=== PATIENT | female | born 1980 | race Caucasian/White ===

== ENCOUNTER 2016-03-29 12:55 | Emergency (ER) | payer OTHER ==
[2016-03-29 13:19] VITALS: BP 98/57; PULSE 84; TEMP 98; BMI 19.5
[2016-03-29] MEDS ORDERED: IBUPROFEN 400 MG TABLET (FP) PO ONE ×2 (15:09→15:28)
[2016-03-29] MEDS ORDERED: OXYCODONE/APAP 5/325MG COMBO TABLET PO ONE (15:09)
[2016-03-29] MEDS ORDERED: AMOX TR/POT CLAV 875MG/125MG TABLETS (FP) PO ONE (15:10)
--- NOTE | 2016-03-29 15:17 | PDOC ---
[id number] Severity: moderate Associated Symptoms: denies: cough, fever/chills <Brooklyn Alatorre - Last Filed: 03/29/16 15:24> <Berna Holland - Last Filed: 03/29/16 22:32> - General Chief Complaint: Edema Stated Complaint: SWELLING RT SIDE OF FACE Time Seen by Provider: 03/29/16 14:14 Past History - Psycho/Social/Smoking Cessation Hx Suicidal Ideation: No Smoking History: Current every day smoker Number of Cigarettes Smoked Daily: 5 Information on smoking cessation initiated: No <Brooklyn Alatorre - Last Filed: 03/29/16 15:24> <Berna Holland - Last Filed: 03/29/16 22:32> - Past Medical History Allergies/Adverse Reactions: Allergies Allergy/AdvReac Type Severity Reaction Status Date / Time No Known Allergies Allergy Verified 03/29/16 13:19 Home Medications: Ambulatory Orders Amoxicillin/Potassium Clav [Augmentin 875-125 Tablet] 1 each PO BID #14 tablet 03/29/16 Ibuprofen [Motrin -] 800 mg PO Q6H #30 tablet 03/29/16 Oxycodone HCl/Acetaminophen [Percocet 5-325 mg Tablet] 1 tab PO Q4H #12 tablet MDD 4 03/29/16 Review of Systems - Review of Systems Constitutional: No: Chills, Fever HEENTM: No: Ear Pain, Nose Pain, Nose Congestion, Throat Pain Respiratory: No: Cough <Brooklyn Alatorre - Last Filed: 03/29/16 15:24> *Physical Exam - Vital Signs Last Vital Signs Temp Pulse Resp BP Pulse Ox 98 F 84 18 98/57 100 03/29/16 13:16 03/29/16 13:16 03/29/16 13:16 03/29/16 13:16 03/29/16 13:16 - Physical Exam General Appearance: Yes: Appropriately Dressed. No: Apparent Distress HEENT: positive: Normal Voice, Other (~2cm induration over R nasolabial fold w/ ? fluctuance, +swelling/fullness to gumline of R upper molar, concerning for dental abscess) Neck: positive: Supple. negative: Lymphadenopathy (R), Lymphadenopathy (L) Respiratory/Chest: negative: Respiratory Distress Integumentary: positive: Dry, Warm Neurologic: positive: Fully Oriented, Alert, Normal Mood/Affect <Brooklyn Alatorre - Last Filed: 03/29/16 15:24> - Vital Signs Last Vital Signs Temp Pulse Resp BP Pulse Ox 98 F 84 18 98/57 100 03/29/16 13:16 03/29/16 13:16 03/29/16 13:16 03/29/16 13:16 03/29/16 13:16 <Berna Holland - Last Filed: 03/29/16 22:32> Procedures - Incision and Drainage I&D Site: Right: Other (dental abscess-incision made to gumline of R upper 1st molar w/ sig purulent drainage, suction used during procedure) Betadine cleansed: No Anesthesia: 1% Lidocaine Blade Size: 11 Attempts: 1 <Brooklyn Alatorre - Last Filed: 03/29/16 15:24> - Incision and Drainage I&D Site: Right: Other (dental abscess) Anesthesia: 1% Lidocaine Volume(ml): 1 Blade Size: 11 Attempts: 2 Complications: none Progress: PAtient was injected with lidocaine locally at the area of maximum fluctuance, over the R upper premolars. Once anesthesia was achieved, area was incised, initially with no return of pus. Incision was made slightly deeper, at which time small amt of pus was expressed. <Berna Holland - Last Filed: 03/29/16 22:32> ED Treatment Course - ADDITIONAL ORDERS Additional order review: Laboratory Results 03/29/16 15:27 ALT 26 - Medications Given in the ED: ED Medications Discontinued Medications Generic Name Dose Route Start Last Admin Trade Name Kiran PRN Reason Stop Dose Admin Amoxicillin/Clavulanate Potassium 1 tab 03/29/16 15:10 03/29/16 15:34 Augmentin - 875mg Tablet PO 03/29/16 15:11 1 tab ONCE ONE Administration Ibuprofen 800 mg 03/29/16 15:09 03/29/16 15:33 Motrin - PO 03/29/16 15:10 800 mg ONCE ONE Administration Oxycodone/Acetaminophen 1 combo 03/29/16 15:09 03/29/16 15:34 Percocet 5/325 - PO 03/29/16 15:10 1 combo ONCE ONE Administration <Berna Holland Last Filed: 03/29/16 22:32> Medical Decision Making - Medical Decision Making 03/29/16 15:11 35-year-old female, denies any past medical history, here with R facial swelling x several days. Denies any trauma, dental pain, URI symptoms, fever or chills. Patient well-appearing and stable in ED w/ approximately 2 cm area of induration palpated over right nasolabial area with ? fluctuance, w/ corresponding swelling to gumline of R upper 1st molar w/ large dental arun. Findings concerning for dental abscess. I and D was performed by myself and Dr. Holland with significant purulent drainage and improvement in facial swelling. Patient was started on Augmentin and given follow-up at dental care center in [place] 03/29/16 15:23 Of note, BP low in ED. Pt states BP usually runs low. No dizziness or weakness 03/29/16 15:23 ED attg accidentally got stuck with blade during I&D. Pt denies any pmhx and verbally consenting to exposure labs 03/29/16 15:24 <Brooklyn Alatorre - Last Filed: 03/29/16 15:24> *DC/Admit/Observation/Transfer <Brooklyn Alatorre - Last Filed: 03/29/16 15:24> - Attestations Physician Attestion: I reviewed the case with the mid-level practitioner and agree with the mid- level practitioner's assessment, diagnosis and disposition. <Berna Holland - Last Filed: 03/29/16 22:32> Diagnosis at time of Disposition: Dental abscess - Discharge Dispostion Disposition: HOME Condition at time of disposition: Improved - Prescriptions Prescriptions: Amoxicillin/Potassium Clav [Augmentin 875-125 Tablet] 1 each PO BID #14 tablet Ibuprofen [Motrin -] 800 mg PO Q6H #30 tablet Oxycodone HCl/Acetaminophen [Percocet 5-325 mg Tablet] 1 tab PO Q4H #12 tablet MDD 4 - Patient Instructions Printed Discharge Instructions: Tooth Abscess Additional Instructions: Take medications as directed and follow up in dental clinic today: [facility] [address] [place] [address]
[2016-03-29] MEDS ORDERED: AMOX TR/POT CLAV 875MG/125MG TABLETS (FP) ONE (15:29)
[2016-03-29] MEDS ORDERED: OXYCODONE/APAP 5/325MG COMBO TABLET ONE (15:29)
[2016-03-29 17:18] LABS: HIV 1 & 2 AB NEGATIVE; HIV 1 AGp24 NEGATIVE
[2016-04-01 00:06] LABS: HEP B SURFACE AB Reactive (.)
== END 2016-03-29 15:34 | disposition home or self-care (01) ==
LOC: JERFT 12:55
PROC: 0C95XZZ Drainage of Upper Gingiva, External Approach (ICD-10-PCS; principal; 2016-03-29)
DX: K04.7 Periapical abscess without sinus (principal)
CPT/HCPCS: 36415; 41800; 84460; 86704; 86706; 86708; 86803; 87340; 87389; 99281-25

== ENCOUNTER 2016-05-21 20:08 | Emergency (ER) | payer OTHER ==
[2016-05-21 20:27] VITALS: BP 127/86; PULSE 106; TEMP 97.3; BMI 18.8
[2016-05-21] MEDS ORDERED: ONDANSETRON 4 MG/2 ML VIAL IVPB ONE (22:01)
[2016-05-21] MEDS ORDERED: SODIUM CHLORIDE 1,000 ML IV STA (22:02)
[2016-05-21] MEDS ORDERED: AMOX TR/POT CLAV 875MG/125MG TABLETS (FP) PO ONE (22:02)
[2016-05-21] MEDS ORDERED: ONDANSETRON 4 MG/2 ML VIAL ONE (22:02)
[2016-05-21] MEDS ORDERED: ALBUTEROL SO4 0.083% IH SOL 2.5 MG/3 ML VIAL.NEB. NEB ONE (22:46)
[2016-05-21] MEDS ORDERED: AMOX TR/POT CLAV 875MG/125MG TABLETS (FP) ONE (22:46)
[2016-05-21] MEDS ORDERED: ALBUTEROL SO4 2.5/IPRATROPIUM 0.5 INH SOL 3 ML VIAL.NEB. NEB ONE (22:46)
--- NOTE | 2016-05-21 22:47 | PDOC ---
History of Present Illness - General Chief Complaint: Cold Symptoms Stated Complaint: COLD SYMPTOMS Time Seen by Provider: 05/21/16 20:39 History Source: Patient Exam Limitations: No Limitations - History of Present Illness Initial Comments: 05/21/16 22:44 CC sore throat, bad cough x 1 week Timing/Duration: reports: week Severity: reports: moderate Associated Symptoms: reports: nasal congestion, nasal drainage, sore throat, wheezing. denies: earache, fever/chills Past History - Past Medical History Allergies/Adverse Reactions: Allergies Allergy/AdvReac Type Severity Reaction Status Date / Time No Known Allergies Allergy Verified 05/21/16 20:27 Home Medications: Ambulatory Orders Albuterol Sulfate Inhaler - [Ventolin HFA Inhaler -] 2 inh PO Q4H #1 inh Amox-Tr/K Cl [Augmentin - 875Mg Tablet] 1 tab PO BID #20 tablet 05/21/16 Ondansetron [Zofran -] 4 mg PO BID #7 tablet 05/21/16 Other medical history: denies - Psycho/Social/Smoking Cessation Hx Suicidal Ideation: No Smoking History: Current every day smoker Number of Cigarettes Smoked Daily: 10 Information on smoking cessation initiated: No Hx Alcohol Use: No Drug/Substance Use Hx: No Substance Use Type: None *Physical Exam - Vital Signs Last Vital Signs Temp Pulse Resp BP Pulse Ox 97.3 F L 106 H 19 127/86 97 05/21/16 20:24 05/21/16 20:24 05/21/16 20:24 05/21/16 20:24 05/21/16 20:24 ED Treatment Course - Medications Given in the ED: ED Medications Discontinued Medications Generic Name Dose Route Start Last Admin Trade Name Aamirq PRN Reason Stop Dose Admin Ondansetron HCl 4 mg 05/21/16 22:01 05/21/16 22:09 Zofran Injection IVPB 05/21/16 22:02 4 mg ONCE ONE Administration Medical Decision Making - Medical Decision Making 05/21/16 22:55 feeling better post zofran, 1 liter of NS and combivent; will start augmentin due to smoker with new wheezing and sinus infection *DC/Admit/Observation/Transfer Diagnosis at time of Disposition: Bronchitis Acute sinus infection Qualifiers: Sinusitis location: unspecified location Recurrence: non-recurrent Qualified Code(s): J01.90 - Acute sinusitis, unspecified - Discharge Dispostion Disposition: HOME Condition at time of disposition: Stable Admit: No - Prescriptions Prescriptions: Amox-Tr/K Cl [Augmentin - 875Mg Tablet] 1 tab PO BID #20 tablet Albuterol Sulfate Inhaler - [Ventolin HFA Inhaler -] 2 inh PO Q4H #1 inh Ondansetron [Zofran -] 4 mg PO BID #7 tablet - Patient Instructions Additional Instructions: please see local MD in 5 days if no better; rest at home; lots of fluids - Post Discharge Activity Work/School Note: Back to Work
== END 2016-05-21 23:04 | disposition home or self-care (01) ==
LOC: JERFT 20:08
PROC: 3E0F7GC Introduction of Other Therapeutic Substance into Respiratory Tract, Via Natural or Artificial Opening (ICD-10-PCS; principal; 2016-05-21)
PROC: 3E0337Z Introduction of Electrolytic and Water Balance Substance into Peripheral Vein, Percutaneous Approach (ICD-10-PCS; 2016-05-21)
PROC: 3E033GC Introduction of Other Therapeutic Substance into Peripheral Vein, Percutaneous Approach (ICD-10-PCS; 2016-05-21)
DX: J20.9 Acute bronchitis, unspecified (principal); J01.90 Acute sinusitis, unspecified
CPT/HCPCS: 94640; 96361; 96374; 99281-25

== ENCOUNTER 2016-07-17 11:52 | Emergency (ER) | payer OTHER ==
[2016-07-17 11:58] VITALS: BP 124/57; PULSE 88; TEMP 98.2; BMI 18.8
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
== END 2016-07-17 13:33 | disposition home or self-care (01) ==
LOC: JERFT 11:52
DX: Z32.01 Encounter for pregnancy test, result positive (principal); K05.10 Chronic gingivitis, plaque induced
CPT/HCPCS: 84703; 99281-25

== ENCOUNTER 2016-08-04 18:26 | Emergency (ER) | payer OTHER ==
[2016-08-04 18:30] VITALS: BP 125/78; PULSE 99; TEMP 98.6; BMI 19.7
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
[2016-08-04 22:15] LABS: BASOPHIL 0.6 % (0-2.0); EOSINOPHIL 1.4 % (0-4.5); MCH 31.1 pg (25.7-33.7); MCHC 33.9 g/dl (32.0-36.0); MEAN CELL VOLUME 91.7 fl (80-96); MEAN PLT VOLUME 7.3 fl (7.5-11.1); NEUTROPHILS 69.9 % (42.8-82.8); PLATELET COUNT 228 K/MM3 (134-434); WHITE BLOOD COUNT 9.7 K/mm3 (4.0-10.0)
[2016-08-04 22:17] LABS: URINE APPEARANCE CLEAR; URINE BILIRUBIN NEGATIVE (NEGATIVE); URINE COLOR STRAW; URINE GLUCOSE (UA) NEGATIVE (NEGATIVE); URINE KETONE NEGATIVE (NEGATIVE); URINE LEUK ESTERASE NEGATIVE (NEGATIVE); URINE NITRITE NEGATIVE (NEGATIVE); URINE PROTEIN NEGATIVE (NEGATIVE); URINE UROBILINOGEN NEGATIVE E.U./dl (0.2-1.0)
[2016-08-04 22:19] LABS: URINE BLOOD 1+ (NEGATIVE)
[2016-08-04 22:20] LABS: URINE BACTERIA RARE /hpf (NONE SEEN); URINE MUCUS RARE; URINE RBC 1 /hpf (0-3); URINE WBC 3 /hpf (3-5)
== END 2016-08-04 23:31 | disposition home or self-care (01) ==
LOC: JER 18:26
DX: O99.89 Other specified diseases and conditions complicating pregnancy, childbirth and the puerperium (principal); R10.84 Generalized abdominal pain; V43.52XA Car driver injured in collision with other type car in traffic accident, initial encounter; Y92.488 Other paved roadways as the place of occurrence of the external cause; Y93.89 Activity, other specified; Y99.8 Other external cause status
CPT/HCPCS: 36415; 81003; 81015; 85025; 86850; 86900; 86901; 87086; 99284-25

== ENCOUNTER 2016-11-29 13:29 | Emergency (ER) | payer OTHER ==
[2016-11-29 13:43] VITALS: BMI 24.2
[2016-11-29] MEDS ORDERED: ELECTROLYTE-148 SOLN 1,000 ML IV ONE (14:30)
[2016-11-29 15:45] LABS: URINE APPEARANCE CLOUDY; URINE BILIRUBIN NEGATIVE (NEGATIVE); URINE BLOOD NEGATIVE (NEGATIVE); URINE COLOR YELLOW; URINE GLUCOSE (UA) NEGATIVE (NEGATIVE); URINE KETONE NEGATIVE (NEGATIVE); URINE NITRITE NEGATIVE (NEGATIVE); URINE PROTEIN NEGATIVE (NEGATIVE); URINE UROBILINOGEN NEGATIVE mg/dL (0.2-1.0)
[2016-11-29 17:03] LABS: BASOPHIL 0.1 % (0-2.0); EOSINOPHIL 0.7 % (0-4.5); MCH 31.7 pg (25.7-33.7); MCHC 33.7 g/dl (32.0-36.0); MEAN PLT VOLUME 8.5 fl (7.5-11.1); NEUTROPHILS 86.2 % (42.8-82.8); PLATELET COUNT 187 K/MM3 (134-434); RDW 13.6 % (11.6-15.6); WHITE BLOOD COUNT 11.3 K/mm3 (4.0-10.0)
[2016-11-29 17:33] LABS: ALBUMIN 2.4 g/dl (3.4-5.0); ANION GAP 10 (8-16); CALCIUM 8.2 mg/dL (8.5-10.1); CO2 22 mmol/L (21-32); GLUCOSE,RANDOM 83 mg/dL (74-106)
[2016-11-29 18:10] VITALS: BP 130/69; PULSE 100; TEMP 98.2
[2016-11-29 18:32] LABS: BILIRUBIN,TOTAL 0.3 mg/dL (0.2-1.0); TOT PROT 5.4 g/dl (6.4-8.2)
[2016-11-29 18:33] LABS: ALK PHOS 102 U/L (45-117); SGOT/AST 10 U/L (15-37); SGPT/ALT 17 U/L (12-78)
[2016-11-29 23:27] LABS: CREATININE 0.4 mg/dL (0.55-1.02)
== END 2016-11-29 18:06 | disposition home or self-care (01) ==
LOC: JER 13:29
DX: O26.893 Other specified pregnancy related conditions, third trimester (principal); R10.30 Lower abdominal pain, unspecified; Z3A.33 33 weeks gestation of pregnancy
CPT/HCPCS: 36415; 80053; 81003; 85025; 99282-25

== ENCOUNTER 2017-01-16 07:35 | Inpatient (IN) | payer OTHER ==
[2017-01-16] MEDS ORDERED: CITRIC ACID/SODIUM CITRATE 30 ML UNIT-DOSE CUP PO ONE (09:14)
[2017-01-16] MEDS ORDERED: ELECTROLYTE-148 SOLN 500 ML IV ONE (09:14)
[2017-01-16] MEDS ORDERED: DEXTROSE 5%-LACTATED RINGERS 1,000 ML IV SCH (09:15)
[2017-01-16] MEDS ORDERED: METHYLERGONOVINE MALEATE 0.2 MG/1 ML AMP IM PRN (09:16)
[2017-01-16] MEDS ORDERED: BENZOCAINE 20% 57 GM BOTTLE TP PRN (09:16)
--- NOTE | 2017-01-16 09:24 | HP ---
Past Medical History - Primary Care Physician PCP:: Alexia Pate - Admission Chief Complaint: spontaneous labor History of Present Illness: 36 yo History Source: Patient - Past Medical History ...: 1 ...Para: 0 ...EDC by [facility]: 01/14/17 - Past Surgical History Past Surgical History: Yes: None Hx Myomectomy: No Hx Transabdominal Cerclage: No Additional Surgical History: RIght ankle surgery - Smoking History Smoking history: Never smoked Aproximately how many cigarettes per day: 10 - Alcohol/Substance Use Hx Alcohol Use: No History of Substance Use: reports: None - Social History Usual Living Arrangement: Yes: With Spouse History of Recent Travel: No Home Medications - Allergies Allergies/Adverse Reactions: Allergies Allergy/AdvReac Type Severity Reaction Status Date / Time No Known Allergies Allergy Verified 01/16/17 08:19 - Home Medications Home Medications: Ambulatory Orders Vit/Iron Fumarate/FA [ Tablet] 1 each PO DAILY 08/04/16 Ferrous Gluconate [Iron] 256 mg PO TID 01/16/17 Review of Systems - Review of Systems Constitutional: reports: No Symptoms Eyes: reports: No Symptoms HENT: reports: No Symptoms Neck: reports: No Symptoms Cardiovascular: reports: No Symptoms Respiratory: reports: No Symptoms Gastrointestinal: reports: No Symptoms Genitourinary: reports: Pain Breasts: reports: No Symptoms Reported Musculoskeletal: reports: No Symptoms Integumentary: reports: No Symptoms Neurological: reports: No Symptoms Endocrine: reports: No Symptoms Hematology/Lymphatic: reports: No Symptoms Psychiatric: reports: No Symptoms Physical Exam - Maternity Constitutional: Yes: Well Nourished, No Distress - Abdominal Exam/OB Number of Fetuses: Single Presentation: Vertex Contractions: Yes Regularity: Regular Monitor Mode: External Category: II Decelerations: Early - Vaginal Exam/OB Amniotic Membrane Status: Intact Presentation: Vertex/Position - Physical Exam Musculoskeletal: Yes: WNL Extremities: Yes: WNL Edema: No Psychiatric: Yes: WNL, Alert, Oriented Problem List - Problems (1) Delivery by elective section Code(s): O82 - ENCOUNTER FOR DELIVERY WITHOUT INDICATION Assessment/Plan Cat 2 refusal of trial of labor SGA iup at 40.2 weeks Plan Primary Section huizar notify peds and neonatalogy
[2017-01-16] MEDS ORDERED: OXYTOCIN 20 UNITS in 0.9% NS 1,000 ML IV SCH (09:30)
[2017-01-16 09:37] VITALS: BMI 25.7
[2017-01-16 09:43] LABS: BASOPHIL 0.3 % (0-2.0); MCH 30.9 pg (25.7-33.7); MCHC 33.8 g/dl (32.0-36.0); MEAN CELL VOLUME 91.4 fl (80-96); MEAN PLT VOLUME 8.3 fl (7.5-11.1); NEUTROPHILS 91.7 % (42.8-82.8); PLATELET COUNT 229 K/MM3 (134-434); RDW 14.1 % (11.6-15.6); WHITE BLOOD COUNT 14.2 K/mm3 (4.0-10.0)
[2017-01-16] MEDS ORDERED: morphine SULFATE/Preservative Free 0.5 MG/ML (1cc Syringe) EP ONE (09:48)
[2017-01-16] MEDS ORDERED: ONDANSETRON 4 MG/2 ML VIAL IVPUSH PRN (09:48)
[2017-01-16] MEDS ORDERED: IBUPROFEN 800 MG/8 ML IJ IVPB PRN (09:49)
[2017-01-16 09:54] LABS: INR 0.95 (0.82-1.09); PROTHROMBIN TIME (PATIENT) 10.7 SEC (9.98-11.88)
[2017-01-16 09:55] LABS: URINE MARIJUANA THC NEGATIVE ng/ml (CUTOFF=50)
[2017-01-16 09:57] LABS: ACTIVATED PTT 25.5 SECONDS (26.9-34.4)
[2017-01-16 10:01] LABS: ANION GAP 13 (8-16); CALCIUM 8.6 mg/dL (8.5-10.1); CO2 19 mmol/L (21-32); CREATININE 0.7 mg/dL (0.55-1.02); GLUCOSE,RANDOM 88 mg/dL (74-106)
[2017-01-16 10:39] LABS: HIV 1 & 2 AB NEGATIVE; HIV 1 AGp24 NEGATIVE
--- NOTE | 2017-01-16 11:18 | OP ---
Operative Note - Note: Operative Date: 01/16/17 Pre-Operative Diagnosis: Nonreassuring. SGA. iuo at 40.2 week Operation: Primary Section Findings: Live female Post-Operative Diagnosis: Same as Pre-op Surgeon: Alexia Pate Plasma Specialist: Lawrence Hernandez Anesthesia: Spinal Estimated Blood Loss (mls): 600 Operative Report Dictated: Yes
[2017-01-16 11:23] LABS: ARTERIAL BLD GAS O2 SATURATION 9.7 % (90-98.9); ARTERIAL BLOOD GAS pH 7.32 (7.35-7.45)
[2017-01-16 11:24] LABS: ARTERIAL BLOOD GAS PO2 11.1 mmHg (80-100)
[2017-01-16 11:27] LABS: VENOUS BLOOD GAS HCO3 22.3 meq/L (19-25); VENOUS PH 7.41 (7.32-7.42)
--- NOTE | 2017-01-16 11:57 | OP ---
DATE OF OPERATION: 01/16/2017 PREOPERATIVE DIAGNOSES: Non-reassuring tracing, small for gestational age, intrauterine at 40-2/7 weeks. SURGERY: Primary section. POSTOPERATIVE DIAGNOSES: Non-reassuring tracing, small for gestational age, intrauterine at 40-2/7 weeks, live female infant. SURGEON: Alexia Pate MD PIPE BOWLS PAINT TRIMMER: BERTA Gaitan. unavailable. ANESTHESIA: Spinal. ANESTHESIOLOGIST: Armand Matos MD PROCEDURE: The patient was taken to the operating room, placed in supine position, prepped and draped in the usual sterile fashion. Timeout was performed in accordance with hospital regulation. A Pfannenstiel skin incision was made with a scalpel. Cautery was then used to go through layers of abdominal wall to level of fascia. Fascia was cut in the midline and cautery was then used to open the fascia in smiling fashion. Kochers then used to bluntly and sharply dissect the rectus muscle with the fascia. Muscles split in midline. Peritoneal cavity was then entered, and carried up and down, with bladder retractor then placed. Vesicouterine reflection was then entered. Bladder was bluntly dissected out of the operative field. Scalpel was then used to make a low transverse uterine incision. The incision was carried up with the use of bandage scissors. A live female was delivered in OT position. Nose and mouth suction performed. Shoulders were delivered without difficulty. Cord was clamped and cut, cord blood obtained. Placenta was manually extracted from the uterus. Uterus was exteriorized and cleaned with clean lap pads. Uterine incision was then closed using 0 Biosyn suture, 1st layer in continuous interlocking, 2nd layer imbricating the 1st layer. Hemostasis was achieved. Uterus interiorized. Abdominal cavity cleaned with clean lap pads. Tubes and ovaries were noted to be normal. Peritoneum closed using 0 Biosyn suture. Fascia was then closed using 0 Vicryl suture in 2 parts. Skin was then closed using 3-0 Vicryl in subcuticular fashion. Wound was washed and dressed. Patient had tolerated procedure well, was taken to recovery room in stable condition. EBL 600 cc ALEXIA PATE M.D. [id number] [facility]
[2017-01-16] MEDS ORDERED: TUBERCULIN PPD 5 TU/0.1ML SYRINGE (IN PATIENT USE ONLY) ID ONE (13:00)
[2017-01-16] MEDS ORDERED: ONDANSETRON 4 MG/2 ML VIAL ONE (20:33)
[2017-01-17] MEDS: IBUPROFEN 800 MG/8 ML IJ IVPB PRN ×2 (04:03→11:50)
[2017-01-17 07:02] LABS: BASOPHIL 0.6 % (0-2.0); EOSINOPHIL 0.3 % (0-4.5); MCH 31.7 pg (25.7-33.7); MCHC 34.2 g/dl (32.0-36.0); MEAN CELL VOLUME 92.7 fl (80-96); MEAN PLT VOLUME 8.4 fl (7.5-11.1); NEUTROPHILS 81.7 % (42.8-82.8); PLATELET COUNT 206 K/MM3 (134-434); RDW 14.2 % (11.6-15.6); WHITE BLOOD COUNT 13.5 K/mm3 (4.0-10.0)
[2017-01-17] MEDS ORDERED: BISACODYL 10 MG SUPP.RECT RC PRN (09:16)
[2017-01-17] MEDS: PRENATAL VITAMINS W/ FOLIC ACID TABLET (FP) PO SCH (09:32)
--- NOTE | 2017-01-17 12:39 | PN ---
Progress Note (short form) - Note Progress Note: ANESTHESIOLOGIST 36F s/p with spinal anesthesia POD #1. Called to assess patient for headache. Pt c/o unilateral right supraorbital and temporal headache. Denies tinnitus, diplopia, photophobia, N/V, positional changes. Pain was 10/10 now 5/ 10 severity after Ibuprofen IV. Pt has history of migraines but states reynoso snot feel like typical migraine. Vital Signs Temperature 97.7 F 01/17/17 06:34 Pulse Rate 88 01/17/17 06:34 Respiratory Rate 20 01/17/17 11:00 Blood Pressure 110/60 01/17/17 06:34 O2 Sat by Pulse Oximetry (%) 98 01/16/17 12:30 Active Medications Benzocaine (Americaine 20% [place] -) 1 spray TP PRN PRN PRN Reason: PAIN Bisacodyl (Dulcolax Suppository -) 10 mg RC PRN PRN PRN Reason: CONSTIPATION Diphenhydramine HCl (Benadryl Injection -) 25 mg IVPUSH Q4H PRN PRN Reason: Pruritis Diphtheria/Tetanus/Acell Pertussis (Boostrix -) 0.5 ml IM .ONCE ONE Stop: 01/17/17 14:01 Dextrose/Lactated Ringer's (D5-Lr -) 1,000 mls @ 125 mls/hr IV ASDIR PATRIC Oxytocin/Sodium Chloride (Normal Saline+20 Units Oxytocin -) 1,000 mls @ 125 mls/hr IV ASDIR PATRIC Last Admin: 01/16/17 11:30 Dose: 125 mls/hr Ibuprofen (Motrin -) 600 mg PO Q4H PRN PRN Reason: PAIN Ibuprofen (Caldolor Injection -) 800 mg IVPB Q8H PRN PRN Reason: PAIN OR FEVER Last Admin: 01/17/17 11:50 Dose: 800 mg Ibuprofen (Caldolor Injection -) 600 mg IVPB Q8H PRN PRN Reason: FEVER Methylergonovine Maleate (Methergine Injection -) 0.2 mg IM Q4H PRN PRN Reason: Excessive Bleeding (L&D) Multivit/Folic Acid/Iron ( Vitamins (Sjr) -) 1 tab PO DAILY [facility] Last Admin: 01/17/17 09:32 Dose: Not Given Simethicone (Mylicon -) 80 mg PO Q4H PRN PRN Reason: GAS Gen: Awake, alert, NAD Headache persists without change in severity when changed from sitting to supine position. 36F s/p with uncomplicated spinal anesthesia with 25G needle now with headache. Non-positional, improved with NSAID. Unlikely post-dural puncture headache. No epidural blood patch needed at this time. May continue Ibuprofen, tylenol and/or any medication patient takes at home. Continue management as per primary team.
[2017-01-17] MEDS: oxyCODONE HCL 5 MG TABLET PO PRN ×2 (13:31→18:35)
[2017-01-17] MEDS ORDERED: DIPHTH,PERTUSS(ACELL),TET 0.5 ML DISP.SYRIN IM ONE (14:00)
[2017-01-17] MEDS: IBUPROFEN 600 MG TABLET (FP) PO PRN (18:34)
[2017-01-17] MEDS: SIMETHICONE 80 MG TAB.CHEW (FP) PO PRN (18:34)
[2017-01-18] MEDS: SIMETHICONE 80 MG TAB.CHEW (FP) PO PRN ×5 (00:04→21:08)
[2017-01-18] MEDS: IBUPROFEN 600 MG TABLET (FP) PO PRN ×5 (00:05→21:08)
[2017-01-18] MEDS: oxyCODONE HCL 5 MG TABLET PO PRN ×5 (00:05→21:09)
[2017-01-18] MEDS: PRENATAL VITAMINS W/ FOLIC ACID TABLET (FP) PO SCH (09:26)
--- NOTE | 2017-01-18 09:43 | PN ---
Post Progress Note - Subjective Subjective: 36 yo Para 1 status post primary , seen and evaluated. She's doing well. No complaints Post Day: 2 Type of Delivery: Primary C/S Vital Signs: Vital Signs Temperature 98.1 F 01/18/17 08:13 Pulse Rate 80 01/18/17 08:13 Respiratory Rate 20 01/18/17 08:13 Blood Pressure 125/88 01/18/17 08:13 O2 Sat by Pulse Oximetry (%) 98 01/16/17 12:30 Breast Exam: Yes: Soft Incision: Yes: Dressing dry and intact Abdomen/GI: Yes: Abdomen soft, Tolerating PO Lochia: Yes: Rubra Lochia, amount: Small Extremities: Yes: Calves non-tender Perineum: Yes: Intact Activity: Ambulating - Labs Labs: CBC WBC 13.5 K/mm3 (4.0-10.0) H 01/17/17 06:20 RBC 3.19 M/mm3 (3.60-5.2) L D 01/17/17 06:20 Hgb 10.1 GM/dL (10.7-15.3) L D 01/17/17 06:20 Hct 29.6 % (32.4-45.2) L D 01/17/17 06:20 MCV 92.7 fl (80-96) 01/17/17 06:20 MCH 31.7 pg (25.7-33.7) 01/17/17 06:20 MCHC 34.2 g/dl (32.0-36.0) 01/17/17 06:20 RDW 14.2 % (11.6-15.6) 01/17/17 06:20 Plt Count 206 K/MM3 (134-434) 01/17/17 06:20 MPV 8.4 fl (7.5-11.1) 01/17/17 06:20 Neutrophils % 81.7 % (42.8-82.8) 01/17/17 06:20 Lymphocytes % 7.5 % (8-40) L D 01/17/17 06:20 Monocytes % 9.9 % (3.8-10.2) D 01/17/17 06:20 Eosinophils % 0.3 % (0-4.5) D 01/17/17 06:20 Basophils % 0.6 % (0-2.0) 01/17/17 06:20 Assessment/Plan Status post primary Stable Analgesia PRN pain Continue Post op care
[2017-01-19] MEDS: oxyCODONE HCL 5 MG TABLET PO PRN ×5 (01:06→23:42)
[2017-01-19] MEDS: SIMETHICONE 80 MG TAB.CHEW (FP) PO PRN ×5 (01:06→23:41)
[2017-01-19] MEDS: IBUPROFEN 600 MG TABLET (FP) PO PRN ×5 (01:07→23:41)
[2017-01-19 09:03] LABS: BASOPHIL 1.1 % (0-2.0); EOSINOPHIL 2.6 % (0-4.5); MCH 31.5 pg (25.7-33.7); MCHC 34.2 g/dl (32.0-36.0); MEAN PLT VOLUME 7.4 fl (7.5-11.1); NEUTROPHILS 73.9 % (42.8-82.8); PLATELET COUNT 222 K/MM3 (134-434); RDW 13.9 % (11.6-15.6); WHITE BLOOD COUNT 8.7 K/mm3 (4.0-10.0)
[2017-01-19] MEDS: PRENATAL VITAMINS W/ FOLIC ACID TABLET (FP) PO SCH (10:19)
--- NOTE | 2017-01-19 14:06 | PN ---
Progress Note (SOAP) - Subjective Chief Complaint: Pt doing well - Current Medications Current Medications: Active Medications Benzocaine (Americaine 20% [place] -) 1 spray TP PRN PRN PRN Reason: PAIN Bisacodyl (Dulcolax Suppository -) 10 mg RC PRN PRN PRN Reason: CONSTIPATION Last Admin: 01/19/17 01:06 Dose: 10 mg Diphenhydramine HCl (Benadryl Injection -) 25 mg IVPUSH Q4H PRN PRN Reason: Pruritis Dextrose/Lactated Ringer's (D5-Lr -) 1,000 mls @ 125 mls/hr IV ASDIR PATRIC Oxytocin/Sodium Chloride (Normal Saline+20 Units Oxytocin -) 1,000 mls @ 125 mls/hr IV ASDIR PATRIC Last Admin: 01/16/17 11:30 Dose: 125 mls/hr Ibuprofen (Motrin -) 600 mg PO Q4H PRN PRN Reason: PAIN Last Admin: 01/19/17 08:32 Dose: 600 mg Ibuprofen (Caldolor Injection -) 800 mg IVPB Q8H PRN PRN Reason: PAIN OR FEVER Last Admin: 01/17/17 11:50 Dose: 800 mg Ibuprofen (Caldolor Injection -) 600 mg IVPB Q8H PRN PRN Reason: FEVER Methylergonovine Maleate (Methergine Injection -) 0.2 mg IM Q4H PRN PRN Reason: Excessive Bleeding (L&D) Oxycodone HCl (Roxicodone -) 5 mg PO Q4H PRN Last Admin: 01/19/17 08:31 Dose: 5 mg Multivit/Folic Acid/Iron ( Vitamins (Sjr) -) 1 tab PO DAILY [facility] Last Admin: 01/19/17 10:19 Dose: 1 tab Simethicone (Mylicon -) 80 mg PO Q4H PRN PRN Reason: GAS Last Admin: 01/19/17 08:31 Dose: 80 mg - Objective Vital Signs: Vital Signs Temperature 99.1 F 01/19/17 10:00 Pulse Rate 83 01/19/17 10:00 Respiratory Rate 20 01/19/17 10:00 Blood Pressure 128/86 01/19/17 10:00 O2 Sat by Pulse Oximetry (%) 98 01/16/17 12:30 Constitutional: Yes: Well Nourished, No Distress Neck: Yes: WNL Cardiovascular: Yes: WNL Gastrointestinal: Yes: WNL, Normal Bowel Sounds ....Post : Yes: Uterus firm, Uterus non-tender Edema: No Integumentary: Yes: WNL Wound/Incision: Yes: Clean/Dry, Well Approximated Labs Lab Results: CBC, BMP 01/19/17 08:40 01/16/17 08:57 Problem List - Problems (1) Delivery by elective section Code(s): O82 - ENCOUNTER FOR DELIVERY WITHOUT INDICATION Assessment/Plan SP CS POD 3 Plan OOB Percocet
--- NOTE | 2017-01-19 16:49 | PATH ---
Surgical Pathology Report Patient Name: MEGGAN LOPES [facility]. Rec. #: [id number] /Age/Gender: 1980 (Age: 36) / F Account: [id number] Location: [facility] OBS/FLEET COORDINATOR Taken: 01/16/2017 Received: 01/17/2017 Reported: 01/19/2017 Physicians: Alexia Pate M.D. Specimen(s) Received PLACENTA Clinical History , 40.2 weeks, small for gestational age Primary nonreassuring heart rate Final Diagnosis PLACENTA, SECTION: 360 g THIRD TRIMESTER PLACENTA WITH TRIVASCULAR UMBILICAL CORD AND UNREMARKABLE PLACENTAL MEMBRANES. Electronically Signed Betsey Lamb M.D. Gross Description The specimen is received fresh labeled placenta and is a 360 gram, 14.0 x 13.5 x 2.3 cm. placenta with attached membranes and umbilical cord. The attached membranes are sharma, translucent with focal opacities and insert marginally. The umbilical cord measures 11 cm. in length and averages 0.8 cm. in diameter. The cord inserts eccentrically, 4 cm. to the nearest margin. No true knots or strictures are identified. Cut surface of the umbilical cord reveals 3 vessels. The surface is rivers blue with moderate fibrin deposition and appropriate caliber vessels. The maternal surface is red-brown with focal defects. Sectioning reveals red-brown, spongy parenchyma. No lesions are identified. Medical Insurance Claims Specialist sections are submitted in three cassettes as follows: 1- membrane rolls and umbilical cord; 2-3- full thickness sections of placenta. 01/18/2017 [facility]01/18/2017
[2017-01-20] MEDS: IBUPROFEN 600 MG TABLET (FP) PO PRN ×2 (04:03→09:04)
[2017-01-20] MEDS: SIMETHICONE 80 MG TAB.CHEW (FP) PO PRN (04:04)
[2017-01-20] MEDS: oxyCODONE HCL 5 MG TABLET PO PRN ×2 (04:04→09:03)
--- NOTE | 2017-01-20 07:21 | DS ---
Physical Exam-SAFETY ENGINEER PRESSURE VESSELS Vital Signs: Vital Signs Temperature 99.0 F 01/19/17 21:07 Pulse Rate 94 H 01/19/17 21:07 Respiratory Rate 18 01/19/17 21:07 Blood Pressure 141/69 01/19/17 21:07 O2 Sat by Pulse Oximetry (%) 98 01/16/17 12:30 Constitutional: Yes: Well Nourished, No Distress Neck: Yes: WNL Cardiovascular: Yes: WNL Respiratory: Yes: WNL Gastrointestinal: Yes: WNL ....Post : Yes: Uterus firm, Uterus non-tender Breast(s): Yes: WNL Musculoskeletal: Yes: WNL Extremities: Yes: WNL Edema: No Wound/Incision: Yes: Clean/Dry, Well Approximated Neurological: Yes: WNL, Alert, Oriented Labs: CBC, BMP 01/19/17 08:40 01/16/17 08:57 Delivery - Delivery Section: Low Flap Transverse Type of Anesthesia: Spinal Episiotomy/Laceration: None EBL (cc): 500 Delivery, Single - Stages of Labor Date 1st Stage Initiatied: 01/15/17 Time 1st Stage Initiated: 15:00 Date of Delivery: 01/16/17 Time of Delivery: 10:25 Time Placenta Delivered: 10:26 Placenta: Yes: Manual Removal - Condition of Air Quality Specialist/Dental Intern Present: Yes Name: Thaddeus Nava Gender: Female Weight: 5 lb 14 oz Position: OT Total Hours ROM (Hrs/Mins): 2mins - 1 Minute Total Score: 9 5 Minutes Total Score: 9 - Feeding Plan Initial Plan: Exclusive throughout hospitalization Discharge Summary Reason For Visit: Current Active Problems Delivery by elective section (Acute) Procedures: Principal: Primary Section Condition: Good - Instructions Diet, Activity, Other Instructions: return to office in 1 week for incision check and 6 weeks for check. call for appointment. Referrals: Laverne Laird MD [Staff Physician] - - Home Medications Comprehensive Discharge Medication List: Ambulatory Orders Vit/Iron Fumarate/FA [ Tablet] 1 each PO DAILY 08/04/16 Ferrous Gluconate [Iron] 256 mg PO TID 01/16/17
[2017-01-20 08:23] VITALS: BP 131/80; PULSE 85; TEMP 97.4
[2017-01-20] MEDS: PRENATAL VITAMINS W/ FOLIC ACID TABLET (FP) PO SCH (09:03)
== END 2017-01-20 12:00 | disposition home or self-care (01) | DRG 540 ==
LOC: JDEL 07:35 → JLDR 08:45 → J3W 12:42
PROVIDERS: ADMIT Obstetrics & Gynecology; ATTEND Obstetrics & Gynecology
PROC: 10D00Z1 Extraction of Products of Conception, Low, Open Approach (ICD-10-PCS; principal; 2017-01-16)
DX: O76 Abnormality in fetal heart rate and rhythm complicating labor and delivery (principal); O36.5930 Maternal care for other known or suspected poor fetal growth, third trimester, not applicable or unspecified; Z3A.40 40 weeks gestation of pregnancy; Z37.0 Single live birth
CPT/HCPCS: 36415; 36600; 80048; 80307; 82803; 85025; 85610; 85730; 86593; 86850; 86900; 86901; 87340; 87389; 88307-TC; 90715

== ENCOUNTER 2018-09-20 08:00 | Inpatient (IN) | payer OTHER ==
[2018-09-25 07:17] VITALS: BMI 26.4
[2018-09-25] MEDS ORDERED: CITRIC ACID/SODIUM CITRATE 30 ML UNIT-DOSE CUP PO ONE (08:07)
--- NOTE | 2018-09-25 08:13 | HP ---
Past Medical History - Admission Chief Complaint: Elective History of Present Illness: 38 yo with previous , is pre op for repeat . History Source: Patient Limitations to Obtaining History: No Limitations - Past Medical History ...: 2 ...Para: 1 ...Term: 1 ...: 0 ...Spon : 0 ...Induced : 0 ...Multiple Gestation: 0 ...EDC by Sono: 09/27/18 - Past Surgical History Past Surgical History: Yes: Hx Myomectomy: No Hx Transabdominal Cerclage: No - Smoking History Smoking history: Never smoked Have you smoked in the past 12 months: Yes Aproximately how many cigarettes per day: 10 If you are a former smoker, when did you quit?: 08/2016 - Alcohol/Substance Use Hx Alcohol Use: No History of Substance Use: reports: None - Social History Usual Living Arrangement: Yes: With Spouse History of Recent Travel: No Home Medications - Allergies Allergies/Adverse Reactions: Allergies Allergy/AdvReac Type Severity Reaction Status Date / Time No Known Allergies Allergy Verified 01/16/17 08:19 - Home Medications Home Medications: Ambulatory Orders Vit/Iron Fum/Folic AC [ Tablet] 1 each PO DAILY 08/04/16 Ferrous Gluconate [Iron] 256 mg PO TID 01/16/17 Family Disease History - Family Disease History Family History: Unremarkable Review of Systems - Review of Systems Constitutional: reports: No Symptoms Eyes: reports: No Symptoms HENT: reports: No Symptoms Neck: reports: No Symptoms Cardiovascular: reports: No Symptoms Respiratory: reports: No Symptoms Gastrointestinal: reports: No Symptoms Genitourinary: reports: No Symptoms Breasts: reports: No Symptoms Reported Musculoskeletal: reports: No Symptoms Integumentary: reports: No Symptoms Neurological: reports: No Symptoms Endocrine: reports: No Symptoms Hematology/Lymphatic: reports: No Symptoms Psychiatric: reports: No Symptoms Pain Intensity: 0 Physical Exam - Maternity Vital Signs: Vital Signs Temperature 97.7 F 09/25/18 06:31 Pulse Rate 99 H 09/25/18 06:31 Respiratory Rate 20 09/25/18 06:31 Blood Pressure 137/75 09/25/18 06:31 O2 Sat by Pulse Oximetry (%) Constitutional: Yes: Well Nourished Eyes: Yes: Conjunctiva Clear HENT: Yes: Atraumatic Neck: Yes: Supple Cardiovascular: Yes: Regular Rate and Rhythm Lungs: Clear to auscultation - Abdominal Exam/OB Number of Fetuses: Single Presentation: Vertex Contractions: No - Vaginal Exam/OB Presentation: Vertex/Position - Physical Exam ...Motor Strength: WNL Psychiatric: Yes: Alert, Oriented Problem List - Problems (1) Previous section complicating , antepartum condition or complication Code(s): O34.219 - MATERNAL CARE FOR UNSP TYPE SCAR FROM PREVIOUS DEL Assessment/Plan Elective Pre op for repeat Consent signed Anesthesia to see patient
[2018-09-25] MEDS ORDERED: ELECTROLYTE-148 SOLN 1,000 ML IV SCH (08:15)
[2018-09-25] MEDS ORDERED: ceFAZolin SODIUM 1 GM VIAL ONE (08:24)
[2018-09-25] MEDS ORDERED: EPINEPHrine 1:10,000 (P-F SYR) 1 MG/10 ML DISP.SYRIN ONE (08:27)
[2018-09-25] MEDS ORDERED: ePHEDrine SULFATE 50 MG/1 ML AMPULE ONE (08:29)
[2018-09-25] MEDS ORDERED: PHENYLEPHRINE HCL 10 MG/1 ML SINGLE DOSE VIAL ONE (08:31)
[2018-09-25] MEDS ORDERED: OXYTOCIN 10 UNITS/ML VIAL ONE (08:31)
[2018-09-25] MEDS ORDERED: KETOROLAC TROMETHAMINE 30 MG/1 ML VIAL ONE (08:31)
[2018-09-25] MEDS ORDERED: METHYLERGONOVINE MALEATE 0.2 MG/1 ML AMP IM PRN (09:20)
--- NOTE | 2018-09-25 09:22 | PN ---
Delivery - Delivery Section: Repeat Type of Anesthesia: Spinal Episiotomy/Laceration: None EBL (cc): 600 Delivery, Single - Stages of Labor Date 2nd Stage Initiated: 09/25/18 Date of Delivery: 09/25/18 - Condition of Chemical Treatment Plant Technician/Dive Master Present: Yes - [place] Feeding Plan Initial Plan: Elected not to breastfeed exclusively throughout hospitalization
--- NOTE | 2018-09-25 09:24 | OP ---
Operative Note - Note: Operative Date: 09/25/18 Pre-Operative Diagnosis: Previous Operation: Repeat Low Transverse Findings: Baby girl in ROT position Post-Operative Diagnosis: Same as Pre-op Surgeon: Laverne Laird Transitional Kindergarten Teacher: Lawrence Hernandez Anesthesia: Spinal Specimens Removed: Placenta Estimated Blood Loss (mls): 600
[2018-09-25 10:02] LABS: VENOUS PC02 45.7 mmHg (41-51); VENOUS PH 7.33 (7.31-7.41)
[2018-09-25] MEDS ORDERED: OXYTOCIN 20 UNITS in 0.9% NS 20 UNIT/1,000 ML INFUS.BAG IV ONE (10:56)
[2018-09-25] MEDS: OXYTOCIN 20 UNITS in 0.9% NS 20 UNIT/1,000 ML INFUS.BAG IV SCH ×2 (11:00→22:00)
[2018-09-25] MEDS: IBUPROFEN 800 MG/8 ML IJ IVPB PRN ×2 (13:55→22:00)
[2018-09-25] MEDS ORDERED: ONDANSETRON 4 MG/2 ML VIAL IVPUSH PRN (14:37)
[2018-09-25] MEDS: FERROUS SO4 325 MG TABLET (FP) PO SCH ×2 (16:32→22:13)
[2018-09-25] MEDS: PRENATAL VITAMINS W/ FOLIC ACID TABLET (FP) PO SCH (20:20)
[2018-09-25] MEDS: SIMETHICONE 80 MG TAB.CHEW (FP) PO PRN (22:00)
[2018-09-26] MEDS: ACETAMINOPHEN 325 MG TABLET (FP) PO PRN (05:30)
[2018-09-26] MEDS: IBUPROFEN 600 MG TABLET (FP) PO PRN ×5 (05:30→22:33)
[2018-09-26] MEDS: SIMETHICONE 80 MG TAB.CHEW (FP) PO PRN ×5 (05:30→22:33)
--- NOTE | 2018-09-26 06:45 | OP ---
DATE OF OPERATION: 09/25/2018 PREOPERATIVE DIAGNOSIS: Elective section at 39 weeks. POSTOPERATIVE DIAGNOSIS: Elective section at 39 weeks. PROCEDURE: Repeat low transverse section. SURGEON: Laverne Laird MD ULTRASOUND MANAGER: BERTA Gaitan ANESTHESIA: Spinal. COMPLICATIONS: None. ESTIMATED BLOOD LOSS: 600 mL. DESCRIPTION OF PROCEDURE: Patient was taken to the operating room, where spinal anesthesia was administered. Patient was then prepped and draped in proper sterile fashion. A Pfannenstiel skin incision was made and carried down through the underlying layer of fascia. The fascia was incised in the midline and extended laterally. The superior aspect of the fascial incision was then grasped with a Jesika clamp, elevated, and the rectus muscle dissected out bluntly. Attention was then turned to the inferior aspect of the fascial incision, which in a similar fashion was then grasped with the Jesika clamp, elevated, and the rectus muscle dissected out bluntly. The rectus muscle was then in the midline. The peritoneum was identified and entered sharply with the Metzenbaum scissors. This incision was extended superiorly and inferiorly with good visualization of the bladder. Then, the vesicouterine peritoneum was then grasped with Jesika clamp, elevated, and entered sharply with the Metzenbaum scissors. This incision was extended laterally, and a bladder flap created digitally. The bladder blade was inserted, and the lower uterine segment was incised. This incision was extended laterally. Then, after several unsuccessful attempts to deliver the , a vacuum was then placed over the scalp, and the head was then delivered. The nose and mouth were suctioned, and the cord clamped, and cut. The infant was handed to the awaiting supervisor white sugar. The placenta was removed manually. The uterus exteriorized and cleared of all clots and debris. The uterine incision was repaired using 0 Biosyn in a running locked fashion. A 2nd layer of the same suture was used as a means to provide excellent hemostasis. The pelvis was then completely irrigated. The uterus was returned to the abdomen. The peritoneum was closed using 2-0 Biosyn, and the fascia was reapproximated using 0 Vicryl in a running fashion. The skin was closed in a subcuticular fashion using 3-0 Vicryl. Patient tolerated the procedure well. Patient was then taken to PACU in stable condition. PATHOLOGY: Placenta. Mindy [id number] MTDD
[2018-09-26 07:35] LABS: BASO % 0.2 % (0-2.0); EOS % 0.9 % (0-4.5); HEMATOCRIT 28.7 % (32.4-45.2); HEMOGLOBIN 9.7 GM/dL (10.7-15.3); MCH 31.9 pg (25.7-33.7); MCHC 33.8 g/dl (32.0-36.0); MEAN CELL VOLUME 94.5 fl (80-96); MEAN PLT VOLUME 8.3 fl (7.5-11.1); MONO % 7.3 % (3.8-10.2); NEUT % 84.6 % (42.8-82.8); PLATELET COUNT 179 K/MM3 (134-434); RBC 3.03 M/mm3 (3.60-5.2); RDW 13.8 % (11.6-15.6); WHITE BLOOD COUNT 11.7 K/mm3 (4.0-10.0)
--- NOTE | 2018-09-26 08:15 | PN ---
HC Provider Note Provider Note: Anesthesia Pot-Op Note Pt seen s/p spinal for repeat c/scetion Pt sitting up in bed awake alert Pt denies h/a, no n/v, no puritis Pt reports good pain control 05/28 Normal sensory and motor of b/l lower ext VSS no apparent anesthesia complications Richard Sullivan.
[2018-09-26] MEDS ORDERED: BISACODYL 10 MG SUPP.RECT RC PRN (09:20)
[2018-09-26] MEDS: PRENATAL VITAMINS W/ FOLIC ACID TABLET (FP) PO SCH (09:56)
[2018-09-26] MEDS: FERROUS SO4 325 MG TABLET (FP) PO SCH ×2 (09:56→22:33)
[2018-09-26] MEDS: oxyCODONE HCL 5 MG TABLET PO PRN ×4 (10:03→22:34)
[2018-09-27] MEDS: SIMETHICONE 80 MG TAB.CHEW (FP) PO PRN ×5 (05:57→22:18)
[2018-09-27] MEDS: IBUPROFEN 600 MG TABLET (FP) PO PRN ×5 (05:57→22:18)
[2018-09-27] MEDS: oxyCODONE HCL 5 MG TABLET PO PRN ×4 (05:58→22:19)
[2018-09-27] MEDS: PRENATAL VITAMINS W/ FOLIC ACID TABLET (FP) PO SCH (09:43)
[2018-09-27] MEDS: FERROUS SO4 325 MG TABLET (FP) PO SCH ×2 (09:43→22:18)
--- NOTE | 2018-09-27 12:46 | PATH ---
Surgical Pathology Report Patient Name: MEGGAN LOPES [facility]. Rec. #: [id number] /Age/Gender: 1980 (Age: 38) / F Account: [id number] Location: [facility] OBS/TIE BUCKER Taken: 09/25/2018 Received: 09/25/2018 Reported: 09/27/2018 Physicians: Laverne Laird M.D. Specimen(s) Received PLACENTA Clinical History 39.4 weeks gestation, Final Diagnosis PLACENTA, SECTION: 438 G THIRD TRIMESTER PLACENTA WITH TRIVASCULAR UMBILICAL CORD AND UNREMARKABLE PLACENTAL MEMBRANES. Electronically Signed Betsey Lamb M.D. Gross Description The specimen is received fresh labeled placenta and is a 438 gram, 17.5 x 16.0 x 2.2 cm. placenta with attached membranes and umbilical cord. The attached membranes are sharma, translucent with focal opacities and insert marginally. The umbilical cord measures 23 cm. in length and averages 1 cm. in diameter. The cord inserts eccentrically, 4 cm. to the nearest margin. No true knots or strictures are identified. Cut surface of the umbilical cord reveals 3 vessels. The surface is rivers blue with moderate fibrin deposition and appropriate caliber vessels. The maternal surface is red-brown with focal defects. Sectioning reveals red-brown, spongy parenchyma. No lesions are identified. Produce Weigher sections are submitted in three cassettes as follows: 1- membrane rolls and umbilical cord; 2-3- full thickness sections of placenta. /09/26/2018 [facility]09/26/2018
[2018-09-27] MEDS: ACETAMINOPHEN 325 MG TABLET (FP) PO PRN (14:16)
--- NOTE | 2018-09-28 07:33 | DS ---
Physical Exam-ECONOMETRICIAN Vital Signs: Vital Signs Temperature 98.1 F 09/27/18 22:00 Pulse Rate 88 09/27/18 22:00 Respiratory Rate 20 09/27/18 22:00 Blood Pressure 135/66 09/27/18 22:00 O2 Sat by Pulse Oximetry (%) 100 09/25/18 10:40 Delivery - Delivery Section: Repeat, Low Flap Transverse Type of Anesthesia: Spinal Episiotomy/Laceration: None EBL (cc): 600 Delivery, Single - Stages of Labor Date 2nd Stage Initiated: 09/25/18 Date of Delivery: 09/25/18 Time of Delivery: 08:39 Time Placenta Delivered: 08:40 - Condition of Adjunct Instructor Of Women'S Studies/Cq Developer Present: Yes Name: Laurita Linares Infant Gender: Female Weight: 7 lb 1 oz Position: Right, OT Total Hours ROM (Hrs/Mins): 4 MINS - 1 Minute Total Score: 9 5 Minutes Total Score: 9 - Feeding Plan Initial Plan: Elected not to breastfeed exclusively throughout hospitalization Discharge Summary Reason For Visit: REPEAT C/S Current Active Problems Previous section complicating , antepartum condition or complication (Acute) Hospital Course: Pt admitted on 09/25 for scheduled repeat delivery. Underwent uncomplicated section (see operative report for details). She had an uncomplicated post /post op course and was discharged home on post op day 3. Condition: Good - Instructions Diet, Activity, Other Instructions: Physical activity Resume your normal everyday activity as tolerated but no heavy lifting or strenuous exercise until seen by your surgeon. You may walk unlimited amounts and climb stairs. You may resume driving the car when you feel safe and comfortable behind the wheel. No sexual activity as instructed. Wound care If there are tapes leave them in place. They will peel off in the next 7 to 10 days. Do Not Peel them off. You may shower the day after surgery. If there are tapes present on the skin, you may shower over them. Diet There are no dietary restrictions. Eat healthy, high-fiber foods. Drink 6 to 8 glasses of liquid each day. This will assist in keeping your bowels regular. Pain management You may take Tylenol or Ibuprofen (for example, Motrin, Advil etc.) as needed for pain. If any prescription pain medication was sent to the pharmacy by your doctor, take as directed for moderate to severe pain. Call MD for any of the following: Severe pain not relieved by medication Fever of 101 or higher Excessive bleeding or drainage on dressing Inability to urinate Referrals: Laverne Laird MD [Staff Physician] - Disposition: HOME - Home Medications Comprehensive Discharge Medication List: Ambulatory Orders Vit/Iron Fum/Folic AC [ Tablet] 1 each PO DAILY 08/04/16 Ferrous Gluconate [Iron] 256 mg PO TID 01/16/17 Ibuprofen [Motrin -] 600 mg PO QID PRN #28 tablet 09/28/18
[2018-09-28 07:48] LABS: BASO % 0.4 % (0-2.0); EOS % 3.7 % (0-4.5); HEMATOCRIT 27.1 % (32.4-45.2); HEMOGLOBIN 9.2 GM/dL (10.7-15.3); LYMPH % 25.2 % (8-40); MCH 32.2 pg (25.7-33.7); MEAN CELL VOLUME 94.9 fl (80-96); MEAN PLT VOLUME 7.7 fl (7.5-11.1); MONO % 12.6 % (3.8-10.2); NEUT % 58.1 % (42.8-82.8); PLATELET COUNT 225 K/MM3 (134-434); RBC 2.85 M/mm3 (3.60-5.2); WHITE BLOOD COUNT 5.4 K/mm3 (4.0-10.0)
[2018-09-28] MEDS: SIMETHICONE 80 MG TAB.CHEW (FP) PO PRN (08:03)
[2018-09-28] MEDS: ACETAMINOPHEN 325 MG TABLET (FP) PO PRN (08:04)
[2018-09-28] MEDS: IBUPROFEN 600 MG TABLET (FP) PO PRN (08:04)
--- NOTE | 2018-09-28 08:25 | PN ---
Post Progress Note - Subjective Subjective: Late entry for 0630 am Pt sleeping upon my arrival to the room. No acute events overnight per nursing. Pt scheduled to be discharge home today per primary MD. Type of Delivery: Repeat C/S Vital Signs: Vital Signs Temperature 98.1 F 09/27/18 22:00 Pulse Rate 88 09/27/18 22:00 Respiratory Rate 20 09/27/18 22:00 Blood Pressure 135/66 09/27/18 22:00 O2 Sat by Pulse Oximetry (%) 100 09/25/18 10:40 Uterus: Yes: Fundus Firm Incision: Yes: Sutures intact Abdomen/GI: Yes: Abdomen soft Lochia: Yes: Rubra Lochia, amount: Small Extremities: Yes: Calves non-tender Perineum: Yes: Intact (exam per nursing staff) Activity: Ambulating - Labs Labs: CBC WBC 11.7 K/mm3 (4.0-10.0) H 09/26/18 06:42 RBC 3.03 M/mm3 (3.60-5.2) L 09/26/18 06:42 Hgb 9.7 GM/dL (10.7-15.3) L 09/26/18 06:42 Hct 28.7 % (32.4-45.2) L D 09/26/18 06:42 MCV 94.5 fl (80-96) 09/26/18 06:42 MCH 31.9 pg (25.7-33.7) 09/26/18 06:42 MCHC 33.8 g/dl (32.0-36.0) 09/26/18 06:42 RDW 13.8 % (11.6-15.6) 09/26/18 06:42 Plt Count 179 K/MM3 (134-434) 09/26/18 06:42 MPV 8.3 fl (7.5-11.1) 09/26/18 06:42 Absolute Neuts (auto) 9.9 K/mm3 (1.5-8.0) H 09/26/18 06:42 Neutrophils % 84.6 % (42.8-82.8) H 09/26/18 06:42 Lymphocytes % 7.0 % (8-40) L D 09/26/18 06:42 Monocytes % 7.3 % (3.8-10.2) 09/26/18 06:42 Eosinophils % 0.9 % (0-4.5) 09/26/18 06:42 Basophils % 0.2 % (0-2.0) 09/26/18 06:42 Nucleated RBC % 0 % (0-0) 09/26/18 06:42 Problem List - Problems (1) delivery delivered Code(s): O82 - ENCOUNTER FOR DELIVERY WITHOUT INDICATION (2) Anemia Code(s): D64.9 - ANEMIA, UNSPECIFIED Assessment/Plan 38 yo POD#3 s/p delivery AFVSS Pain controlled with PO meds regular diet ambulating awaiting a.m. CBC
[2018-09-28] MEDS: FERROUS SO4 325 MG TABLET (FP) PO SCH (09:34)
[2018-09-28] MEDS: PRENATAL VITAMINS W/ FOLIC ACID TABLET (FP) PO SCH (09:34)
[2018-09-28 11:16] VITALS: BP 125/61; PULSE 92; TEMP 98
== END 2018-09-28 12:55 | disposition home or self-care (01) | DRG 540 ==
LOC: JLDR 09-25 06:26 → J3W 09-25 11:35
PROVIDERS: ADMIT Obstetrics & Gynecology; ATTEND Obstetrics & Gynecology
PROC: 10D00Z1 Extraction of Products of Conception, Low, Open Approach (ICD-10-PCS; principal; 2018-09-25)
PROC: 10D07Z6 Extraction of Products of Conception, Vacuum, Via Natural or Artificial Opening (ICD-10-PCS; 2018-09-25)
DX: O34.219 Maternal care for unspecified type scar from previous cesarean delivery (principal); O66.5 Attempted application of vacuum extractor and forceps; Z3A.39 39 weeks gestation of pregnancy; Z37.0 Single live birth
CPT/HCPCS: 36415; 82803; 85025; 87389; 87522; 88307-TC